=== PATIENT | female | born 1985 | race Caucasian/White ===

== ENCOUNTER 2019-06-26 18:18 | Emergency (ER) | payer BC ==
[~2019-06-26] VITALS: Ht 162.6 cm; Wt 59.0 kg
[~2019-06-26 18:18] MED LIST: LORA-655 PO
[2019-06-26 20:36] VITALS: BP 151/84
[2019-06-26] MEDS ORDERED: IBUPROFEN 600 MG TAB PO ONE (20:45)
== END 2019-06-26 21:27 | disposition home or self-care (01) ==
LOC: ER 18:20
DX: S92.511A Displaced fracture of proximal phalanx of right lesser toe(s), initial encounter for closed fracture (principal); Z88.2 Allergy status to sulfonamides; X58.XXXA Exposure to other specified factors, initial encounter; Y93.89 Activity, other specified; Y99.8 Other external cause status; Y92.89 Other specified places as the place of occurrence of the external cause
CPT/HCPCS: 29515; 73630